=== PATIENT | male | born 1945 | race Caucasian/White ===

== ENCOUNTER → 2017-04-07 09:48 | Emergency (ER) | payer MEDICARE ==
[2017-04-07 12:54] VITALS: BP 0/0
== END | disposition home or self-care (01) ==
LOC: ED 09:48
DX: R53.1 Weakness (principal); R20.2 Paresthesia of skin; Z53.21 Procedure and treatment not carried out due to patient leaving prior to being seen by health care provider
CPT/HCPCS: 99281

== ENCOUNTER 2019-03-03 07:21 | Observation (INO) | payer MEDICARE ==
--- NOTE | 2019-02-26 20:33 | HP ---
CC: Dr. Marino San; Dr. Ant Suarez * ADMITTING HISTORY AND PHYSICAL: DATE OF ADMISSION: 03/03/19 ADMITTING DIAGNOSES: 1. Benign prostatic hypertrophy. 2. Partial urinary retention. PLANNED PROCEDURE: Transurethral resection of prostate. SURGEON: Dr. Ashraf. HISTORY OF PRESENT ILLNESS: Evangelina Durand is a 73-year-old gentleman with a longstanding history of symptomatic BPH. He had undergone transurethral microwave thermotherapy in 2000 and then subsequently undergone transurethral resection of prostate about 4 years ago. He had done well up until recently when he is noted to have increased postvoid residual (up to 278 cc) and would now like to have transurethral resection of prostate in an effort to try and improve his bladder emptying. PAST MEDICAL HISTORY: Significant for: 1. Coronary artery disease. 2. BPH. 3. Hypertension. PAST SURGICAL HISTORY: Significant for: 1. Microwave procedure for prostate in 2000. 2. Transurethral resection of prostate in 2015. 3. Coronary angioplasty and stent in 2007. MEDICATIONS ON ADMISSION: 1. Simvastatin 40 mg a day. 2. Metoprolol 50 mg a day. 3. Lisinopril 2.5 mg a day. 4. Aspirin 182 mg daily. ALLERGIES: No known drug allergies. SOCIAL HISTORY: Smoking history: He is a former smoker who quit 40 years ago with about 10- to 15-pack year smoking history prior to that. FAMILY HISTORY: Negative for prostate cancer. REVIEW OF SYSTEMS: He is otherwise in excellent health. He has not had any recent episodes of chest pain or shortness of breath. PHYSICAL EXAMINATION GENERAL: Reveals a pleasant fit-appearing gentleman. VITAL SIGNS: Blood pressure is 116/72, pulse 71 per minute and regular, temperature 96.7, oxygen saturation 98% on room air. LUNGS: Clear bilaterally. CARDIOVASCULAR: Regular rate and rhythm. S1, S2. ABDOMEN: Soft without masses. IMPRESSION: A 73-year-old gentleman with symptomatic benign prostatic hypertrophy and increased postvoid residual. PLAN: Planned procedure is transurethral resection of prostate. [id number]/[facility] #: [id number] MTDD
[~2019-03-03 07:21] MED LIST: Buffered Lidocaine 1% SYRIN* 1 ML/SYRINGE INTRADERM ONE; Gentamicin ADULT (*) 160 MG in NS 0.9% 100 ML* 100 ML IVPB ONE; Lactated Ringers 1000 ML Bag* 1,000 ML IV SCH
[2019-03-03] MEDS ORDERED: Nitroglycerin TAB 0.4 MG* 0.4 MG TAB SL PRN (07:51)
[2019-03-03] MEDS ORDERED: Buffered Lidocaine 1% SYRIN* 1 ML/SYRINGE INTRADERM ONE (08:14)
[2019-03-03] MEDS ORDERED: cefTRIAXone(*) 2 GM ADDV.VIAL IVPB ONE (08:14)
[2019-03-03] MEDS ORDERED: fentaNYL* 50 MCG/ML 2 ML VIAL (100 MCG VIAL) ONE (08:44)
[2019-03-03] MEDS ORDERED: Dexamethasone IV* 4 MG/ML 1 ML (4 MG) ONE (09:36)
[2019-03-03] MEDS ORDERED: Ondansetron INJ* 2 MG/ML VIAL ONE (09:36)
[2019-03-03] MEDS ORDERED: Propofol* 10 MG/ML 20 ML BTL ONE (09:36)
[2019-03-03] MEDS ORDERED: Lidocaine 2% PF * 5 ML VIAL ONE (09:36)
[2019-03-03] MEDS ORDERED: Acetaminophen TAB* 325 MG PO PRN (09:59)
[2019-03-03] MEDS ORDERED: HYDROmorphone INJ1* 1 MG/ML SYRINGE IV PRN (09:59)
[2019-03-03] MEDS ORDERED: HYDROcodone/ACETAMIN 5-325 MG* 1 TAB PO PRN (09:59)
[2019-03-03] MEDS ORDERED: Naloxone* 0.4 MG/ML 1 ML VIAL IV PRN (09:59)
[2019-03-03] MEDS ORDERED: Furosemide IV* 10 MG/ML 2 ML VIAL (20 MG) ONE (10:20)
[2019-03-03] MEDS ORDERED: Acetaminophen TAB* 325 MG ONE (11:35)
[2019-03-03] MEDS ORDERED: oxyCODONE/Acetamin 5/325 MG* TAB PO PRN (12:30)
[2019-03-03] MEDS: Lactated Ringers 1000 ML Bag* 1,000 ML IV SCH ×2 (12:30→17:51)
[2019-03-03] MEDS: Lisinopril TAB* 5 MG PO SCH (13:07)
[2019-03-03] MEDS: Atorvastatin* 20 MG TAB PO SCH (13:07)
[2019-03-03] MEDS: Metoprolol Tartrate TAB* 50 mg PO SCH (13:07)
--- NOTE | 2019-03-03 13:53 | OP ---
CC: Dr. Marino San * DATE OF OPERATION: 03/03/19 - ROOM #351 DATE OF : 45 SURGEON: Shahzad Ashraf MD ANESTHESIOLOGIST: Dr. Nova. ANESTHESIA: General. PRE-OP DIAGNOSES: 1. Benign prostatic hypertrophy. 2. Partial urinary retention. POST-OP DIAGNOSES: 1. Benign prostatic hypertrophy. 2. Partial urinary retention. OPERATIVE PROCEDURES: 1. Transurethral resection of prostate. 2. Transurethral incision of bladder neck. COMPLICATIONS: None. BLOOD LOSS: Less than 100 cc. SPECIMEN: Prostate chips. CATHETER: 24-Eth[place] Turcios. INDICATIONS: Evangelina Durand is a 73-year-old gentleman with longstanding history of symptomatic BPH and partial urinary retention. DESCRIPTION OF PROCEDURE: After induction of general anesthesia, the patient was placed in dorsal lithotomy position. Sequential compression devices were in place and functioning. Initial cystoscopy revealed a normal-appearing urethra with moderate regrowth of the lateral lobes of the prostate. The bladder was examined and was unremarkable except for some trabeculations. Transurethral resection of the prostate was carried out from the bladder neck down to the veru. The floor of the prostate was first resected followed by the lateral lobe tissue and then the anterior tissue. The resected tissue was sent for histopathology after being removed with an Ellik evacuator. Next, bladder neck incisions were carried out at the 5, 7, and 12 o'clock positions in an effort to try and minimize any chances of postoperative bladder neck contracture. Once the bladder neck incisions had been completed, a 24- Ethiopian Turcios was introduced without difficulty and connected to a drainage bag. The patient tolerated the procedure satisfactorily and was transferred back to the recovery area in stable condition. [id number]/[facility] #: [id number] [facility]
[2019-03-03] MEDS: Acetaminophen TAB* 325 MG PO PRN (20:58)
[2019-03-03] MEDS ORDERED: Latanoprost 0.005%* 2.5 ml BTL BOTH EYES SCH (21:00)
[2019-03-04] MEDS: Lactated Ringers 1000 ML Bag* 1,000 ML IV SCH ×2 (00:39→07:14)
[2019-03-04 06:13] LABS: BUN/Creatinine Ratio 14.7 (8-20); EGFR African American 74.7 (>60); EGFR Non-African American 61.7 (>60)
[2019-03-04] MEDS: Acetaminophen TAB* 325 MG PO PRN ×2 (08:34→15:12)
[2019-03-04] MEDS: Metoprolol Tartrate TAB* 50 mg PO SCH (08:35)
[2019-03-04] MEDS: Atorvastatin* 20 MG TAB PO SCH (08:36)
[2019-03-04] MEDS: Lisinopril TAB* 5 MG PO SCH (08:36)
[2019-03-04] MEDS ORDERED: Furosemide IV* 10 MG/ML 2 ML VIAL (20 MG) IV ONE (09:00)
[2019-03-04] MEDS ORDERED: cefTRIAXone(*) 2 GM in NS 0.9% 100 ML* 100 ML IVPB ONE (09:00)
[2019-03-04] MEDS ORDERED: Influenza VAC *QUAD* 2019-20* 0.5 ML SYRINGE IM ONE (09:00)
[2019-03-04 11:32] VITALS: BP 95/60
--- NOTE | 2019-03-05 10:12 | DS ---
DISCHARGE SUMMARY: DATE OF ADMISSION: 03/03/19 DATE OF DISCHARGE: 03/04/19 DIAGNOSES: 1. Benign prostatic hypertrophy. 2. Partial urinary retention. SURGICAL PROCEDURES ON THIS ADMISSION: On 03/03/19, transurethral resection of prostate. HISTORY: Evangelina Durand is a 73-year-old gentleman with longstanding history of symptomatic BPH and increased postvoid residual. For details, please see admitting history and physical. HOSPITAL COURSE: On 03/03/19, Mr. Durand underwent transurethral resection of prostate under general anesthesia. Surgery was smooth and uneventful. He was monitored overnight and I checked on him in the evening of 03/03/19 and then also in the morning on 03/04/19. He was discharged home in stable condition with a Turcios catheter in place for followup as per outpatient protocol. [id number]/[facility] #: [id number] MTDD
== END 2019-03-04 15:30 | disposition home or self-care (01) ==
LOC: OR 07:21 → SSU 12:18
PROVIDERS: ADMIT Urology; ATTEND Urology
DX: N40.1 Benign prostatic hyperplasia with lower urinary tract symptoms (principal); R33.8 Other retention of urine; I25.10 Atherosclerotic heart disease of native coronary artery without angina pectoris; Z79.82 Long term (current) use of aspirin; Z79.899 Other long term (current) drug therapy; Z87.891 Personal history of nicotine dependence
CPT/HCPCS: 36415; 80048; 88305; 90471; 90686; 96365; A9270-GY; G0008; G0378; J0696; J1100; J1580; J1940; J2405; J2704; J3010

== ENCOUNTER 2019-03-07 00:26 | Emergency (ER) | payer MEDICARE ==
--- NOTE | 2019-03-07 01:05 | ED ---
GI/ HPI - HPI Summary HPI Summary: Patient with history of recent TURP performed by Dr. Ashraf 4 days ago complains of nonfunctioning urinary catheter. Patient states urine is draining around catheter, but not through catheter. Denies any other pain, injury or symptoms. Patient states he talked to Dr. Jimenez by phone who recommended coming to the ED. - History of Current Complaint Chief Complaint: EDUrogenitalProblems Time Seen by Provider: 03/07/19 00:45 Stated Complaint: ISSUES WITH CATHETER PER PT Hx Obtained From: Patient Onset/Duration: Started Hours Ago Timing: Constant Severity: Mild Current Severity: Mild Pain Intensity: 2 Associated Signs and Symptoms: Positive: Negative - Additional Pertinent History Primary Care Physician: CLARIBEL - Allergy/Home Medications Allergies/Adverse Reactions: Allergies Allergy/AdvReac Type Severity Reaction Status Date / Time No Known Allergies Allergy Verified 03/03/19 08:17 PMH/Surg Hx/FS Hx/Imm Hx Cardiovascular History: Reports: Hx Coronary Artery Disease - 04/2008- 1 STENT PLACED, Hx Hypertension, Other Cardiovascular Problems/Disorders - HIGH CHOLESTEROL History: Reports: Hx Kidney Stones - HISTORY OF, Other Problems/Disorders - HX OF ENLARGE PROSTATE WITH TURP Musculoskeletal History: Denies: Hx Rheumatoid Arthritis, Hx Osteoporosis Sensory History: Reports: Hx Cataracts - HX OF, Hx Contacts or Glasses - GLASSES , Hx Glaucoma Denies: Hx Hearing Aid Opthamlomology History: Reports: Hx Cataracts - HX OF, Hx Contacts or Glasses - GLASSES, Hx Glaucoma EENT History: Denies: Hx Deafness Neurological History: Denies: Hx Dementia - Surgical History Surgery Procedure, Year, and Place: 2007-CARDIAC STENT PLACED- [place]. BOTH CATARACTS REMOVED- LENS IMPLANT. TURP 10 + YEARS AGO. HERNIA REPAIR [facility] Hx Anesthesia Reactions: No - Immunization History Immunizations Up to Date: Yes Infectious Disease History: Yes Infectious Disease History: Reports: Hx Shingles Denies: Traveled Outside the [place] in Last 30 Days - Family History Known Family History: Positive: Non-Contributory - Social History Alcohol Use: Occasionally Alcohol Amount: 1 GLASS OF WINE Substance Use Type: Reports: None Smoking Status (MU): Former Smoker Type: Cigarettes Amount Used/How Often: 1 PPD X 7 YEARS Have You Smoked in the Last Year: No Review of Systems Constitutional: Negative Eyes: Negative ENT: Negative Cardiovascular: Negative Respiratory: Negative Gastrointestinal: Negative Genitourinary: Other Musculoskeletal: Negative Skin: Negative Neurological: Negative Psychological: Normal All Other Systems Reviewed And Are Negative: Yes Physical Exam Triage Information Reviewed: Yes Vital Signs On Initial Exam: Initial Vitals Temp Pulse Resp BP Pulse Ox 98.8 F 65 16 161/92 97 03/07/19 00:28 03/07/19 00:28 03/07/19 00:28 03/07/19 00:28 03/07/19 00:28 Vital Signs Reviewed: Yes Appearance: Positive: Well-Appearing Skin: Positive: Warm Head/Face: Positive: Normal Head/Face Inspection Eyes: Positive: Normal Neck: Positive: Supple Respiratory/Lung Sounds: Positive: Clear to Auscultation Cardiovascular: Positive: Normal Abdomen Description: Positive: Nontender Musculoskeletal: Positive: Normal Neurological: Positive: Normal Psychiatric: Positive: Normal AVPU Assessment: Alert - [place] Coma Scale Best Eye Response: 4 - Spontaneous Best Motor Response: 6 - Obeys Commands Best Verbal Response: 5 - Oriented Coma Scale Total: 15 Procedures - Sedation Patient Received Moderate/Deep Sedation with Procedure: No Diagnostics - Vital Signs Vital Signs Temp Pulse Resp BP Pulse Ox 03/07/19 00:28 98.8 F 65 16 161/92 97 - Laboratory Lab Statement: Any lab studies that have been ordered have been reviewed, and results considered in the medical decision making process. GIGU Course/Dx - Course Course Of Treatment: Patient with history of recent TURP performed by Dr. Ashraf 4 days ago complains of nonfunctioning urinary catheter. Patient states urine is draining around catheter, but not through catheter. Denies any other pain, injury or symptoms. Patient states he talked to Dr. Jimenez by phone who recommended coming to the ED. Vital signs within normal limits. Patient discussed with Dr. Jimenez who recommended flushing catheter, and exchanging catheter if flushing did not work. Flushing was unsuccessful. Patient's catheter was replaced and 400ml rained into the bag. Patient discharged to follow-up with Dr. Dunham on Friday. Dr. Jimenez. Catheter replaced. Flushing normally. - Diagnoses Provider Diagnoses: Turcios catheter problem Discharge ED - Sign-Out/Discharge Documenting (check all that apply): Patient Departure - Discharge Plan Condition: Stable Disposition: HOME Patient Education Materials: Turcios Catheter Placement and Care (ED) Referrals: Shallish,Marino, MD [Primary Care Provider] - Shahzad Ashraf MD [Medical Doctor] - Additional Instructions: Follow-up with urology Dr. Ashraf. - Billing Disposition and Condition Condition: STABLE Disposition: Home
[2019-03-07 02:27] VITALS: BP 129/88
== END 2019-03-07 02:26 | disposition home or self-care (01) ==
LOC: ED 00:26
DX: T83.038A Leakage of other urinary catheter, initial encounter (principal); I10 Essential (primary) hypertension; Z95.5 Presence of coronary angioplasty implant and graft; Z87.891 Personal history of nicotine dependence
CPT/HCPCS: 51702; 99282

== ENCOUNTER 2021-01-29 07:41 | Inpatient (IN) ==
[2021-01-29] MEDS ORDERED: Lactated Ringers 1000 ml BAG 1,000 ML IV ONE (07:54)
[2021-01-29] MEDS ORDERED: Famotidine IV 10 MG/ML 2 ml VIAL (20 mg) IV SLOW PU ONE (07:54)
[2021-01-29] MEDS ORDERED: Diltiazem IV push/loading dose 5 MG/ML 5 ML vial (25 mg) IV SLOW PU ONE (08:00)
[2021-01-29 08:11] LABS: ABS Eosinophils 0.1 10^3/ul (0-0.6); ABS Lymphocytes 0.9 10^3/ul (1.0-4.8); ABS Monocytes 1.1 10^3/ul (0-0.8); ABS Neutrophils 8.5 10^3/ul (1.5-7.7); Eosinophil % 1.2 %; Hematocrit 47 % (42-52); Hemoglobin 15.9 g/dL (14.0-18.0); Lymphocyte % 8.3 %; Mean Corpuscular HGB Conc 34 g/dL (31-36); Mean Corpuscular Hemoglobin 31 pg (27-31); Mean Corpuscular Volume 92 fL (80-94); Mean Platelet Volume 7.4 fL (7.4-10.4); Platelet Count 298 10^3/uL (150-450); Red Blood Count 5.17 10^6 /uL (4.18-5.48); Red Cell Distribution Width 14 % (10-15); White Blood Count 10.7 10^3/uL (3.5-10.8)
[2021-01-29 08:25] LABS: ALT 24 U/L (7-52); AST 20 U/L (13-39); Albumin 3.4 g/dL (3.2-5.2); Alkaline Phosphatase 73 U/L (35-149); Anion Gap 7 mmol/L (2-11); Blood Urea Nitrogen 16 mg/dL (6-24); CO2 Carbon Dioxide 25 mmol/L (22-32); Calcium 9.6 mg/dL (8.6-10.3); Chloride 104 mmol/L (101-111); Creatine Kinase 32 U/L (10-223); EGFR African American 66.3 (>60); EGFR Non-African American 54.8 (>60); Globulin 3.5 g/dL (2-4); Glucose 119 mg/dL (70-100); Potassium 4.1 mmol/L (3.5-5.0); Sodium 136 mmol/L (135-145); Total Protein 6.9 g/dL (6.4-8.9)
[2021-01-29 08:27] LABS: INR 1.23 (0.86-1.15)
[2021-01-29 08:31] LABS: Troponin I 0.03 ng/mL (<0.03)
[2021-01-29] MEDS ORDERED: Magnesium Sulfate 2 gm BAG 2 GM/50 ML BAG IVPB ONE (08:45)
[2021-01-29 09:03] LABS: TSH Ultra Thyroid Stim Horm 0.53 mcIU/mL (0.34-5.60)
[2021-01-29] MEDS: Heparin 5000 UNITS/ML 1 mL VIAL IV SCH ×2 (09:04→23:07)
[2021-01-29] MEDS: Heparin DRIP 25,000 UNITS BAG 25,000 UNITS/500 ML BAG IV SCH (09:04)
[2021-01-29 09:05] LABS: Free T4 1.11 ng/dL (0.61-1.12)
[2021-01-29 09:47] LABS: Rapid COVID-19 Molecular Undetected (Undetected)
[2021-01-29 09:58] LABS: Activated Partial Thrombo Time 28.5 seconds (26.0-38.0)
[2021-01-29 11:24] LABS: Troponin I 0.03 ng/mL (<0.03)
[2021-01-29] MEDS ORDERED: Al Hydrox/Mg Hydrox/Simet LIQ 30 ML UDC PO PRN (12:05)
[2021-01-29 12:48] LABS: C Reactive Protein 157.91 mg/L (<8.01); Lipase 19 U/L (11.0-82.0)
[2021-01-29] MEDS ORDERED: Piperacillin/Tazobac ADVAN 3.375 GM in NS 0.9% 100 ml BAG 100 ML IV ONE (15:22)
[2021-01-29] MEDS ORDERED: Zosyn per Pharmacy NOTE FOLLOW UP SCH (16:00)
[2021-01-29] MEDS: ZOSYN 3.375 GM Q8H per EXTENDED INFUSION IV SCH (21:22)
[2021-01-30] MEDS: NS 0.9% 1000 ml BAG 1,000 ML IV SCH ×2 (02:38→19:34)
[2021-01-30] MEDS: Heparin DRIP 25,000 UNITS BAG 25,000 UNITS/500 ML BAG IV SCH (06:08)
[2021-01-30] MEDS: ZOSYN 3.375 GM Q8H per EXTENDED INFUSION IV SCH ×3 (06:15→21:38)
[2021-01-30 06:45] LABS: ABS Eosinophils 0.1 10^3/ul (0-0.6); ABS Monocytes 0.9 10^3/ul (0-0.8); ABS Neutrophils 6.6 10^3/ul (1.5-7.7); Eosinophil % 1.2 %; Hematocrit 43 % (42-52); Hemoglobin 14.8 g/dL (14.0-18.0); Lymphocyte % 11.2 %; Mean Corpuscular HGB Conc 34 g/dL (31-36); Mean Corpuscular Hemoglobin 31 pg (27-31); Mean Corpuscular Volume 91 fL (80-94); Mean Platelet Volume 7.7 fL (7.4-10.4); Platelet Count 275 10^3/uL (150-450); Red Blood Count 4.76 10^6 /uL (4.18-5.48); Red Cell Distribution Width 14 % (10-15); White Blood Count 8.6 10^3/uL (3.5-10.8)
[2021-01-30 06:59] LABS: C Reactive Protein 159.8 mg/L (<8.01); Calcium 8.9 mg/dL (8.6-10.3); EGFR African American 65.1 (>60); EGFR Non-African American 53.8 (>60); Potassium 4.3 mmol/L (3.5-5.0)
[2021-01-30] MEDS: Heparin 5000 UNITS/ML 1 mL VIAL IV SCH (08:52)
[2021-01-30] MEDS ORDERED: Metoprolol Tartrate 5 mg VIAL 5 ml VIAL (1 mg/ml) IV PRN (15:16)
[2021-01-31] MEDS: ZOSYN 3.375 GM Q8H per EXTENDED INFUSION IV SCH ×3 (04:54→20:19)
[2021-01-31 09:20] LABS: ABS Eosinophils 0.1 10^3/ul (0-0.6); ABS Lymphocytes 0.7 10^3/ul (1.0-4.8); ABS Monocytes 0.6 10^3/ul (0-0.8); ABS Neutrophils 5.1 10^3/ul (1.5-7.7); Eosinophil % 1.3 %; Hematocrit 41 % (42-52); Hemoglobin 13.8 g/dL (14.0-18.0); Lymphocyte % 10.9 %; Mean Corpuscular HGB Conc 34 g/dL (31-36); Mean Corpuscular Hemoglobin 31 pg (27-31); Mean Corpuscular Volume 91 fL (80-94); Mean Platelet Volume 7.7 fL (7.4-10.4); Platelet Count 292 10^3/uL (150-450); Red Blood Count 4.49 10^6 /uL (4.18-5.48); Red Cell Distribution Width 14 % (10-15); White Blood Count 6.6 10^3/uL (3.5-10.8)
[2021-01-31 09:34] LABS: EGFR African American 61.3 (>60); EGFR Non-African American 50.7 (>60)
[2021-01-31] MEDS ORDERED: Midazolam 5 mg/5 ml VIAL 1 mg/ml 5 ml VIAL (5 mg) ONE (10:22)
[2021-01-31] MEDS ORDERED: Naloxone 0.4 mg VIAL 0.4 mg/ml 1 ml VIAL ONE (10:22)
[2021-01-31] MEDS ORDERED: Flumazenil 0.5 mg/5 ml 0.1 MG/ML 5 ml VIAL ONE (10:22)
[2021-01-31] MEDS ORDERED: fentaNYL 100 mcg/2 ml 50 MCG/ML VIAL ONE (10:22)
[2021-01-31 19:54] VITALS: BP 108/67
[2021-02-01 03:37] LABS: Anaplasma phagocytophilum Negative (Negative); B. miyamotoi PCR, B Negative (Negative); Babesia divergens/MO-1 Negative (Negative); Babesia ducani Negative (Negative); Ehrlichia chaffeensis Negative (Negative); Ehrlichia ewingii/canis Negative (Negative); Ehrlichia muris eauclairensis Negative (Negative)
[2021-02-01] MEDS ORDERED: Aspirin EC 81 mg TAB.EC (enteric coated) PO SCH (09:00)
== END 2021-01-31 19:16 | disposition home or self-care (01) | DRG 201 ==
LOC: ED 07:41 → MERGE 12:05 → MEDTELE 12:05 → SUATTDRO 12:05 → MEDTELE 13:02
PROVIDERS: ADMIT Internal Medicine; ATTEND Hospitalist